=== PATIENT | male | born 1955 | race Caucasian/White ===

== ENCOUNTER 2018-01-05 01:58 | Inpatient (IN) ==
[2018-01-05] MEDS ORDERED: NITROGLYCERIN 0.4 MG/TAB BTL SL PRN (02:03)
--- NOTE | 2018-01-05 02:05 | ERNOTE ---
Chest Pain/Cardiac HPI Time Seen by Provider: 01/05/18 01:58 Source: patient Exam Limitations: no limitations Allergies/Adverse Reactions: Allergies iodine Allergy (Severe, Verified 01/05/18 02:12) Anaphylaxis shellfish derived Allergy (Severe, Verified 01/05/18 02:12) Anaphylaxis Home Medications: HOME MEDICATIONS Docusate Sodium 100 mg PO DAILY 01/05/18 [Last Taken Unknown] Metoprolol Succinate [Toprol Xl] 25 mg PO DAILY 01/05/18 [Last Taken Unknown] Omeprazole 20 mg PO DAILY 01/05/18 [Last Taken Unknown] Piroxicam [Feldene] 20 mg PO DAILY 01/05/18 [Last Taken Unknown] Sertraline HCl [Zoloft] 150 mg PO DAILY 01/05/18 [Last Taken Unknown] Simvastatin 10 mg PO DAILY 01/05/18 [Last Taken Unknown] Tamsulosin HCl [Flomax] 0.4 mg PO DAILY 01/05/18 [Last Taken Unknown] Narrative: Pt got up to go to the bathroom and felt dizzy. He got onto the toilet and began to have chest pain and a headache and called EMS. EMS upon arrival found him A&O X 3 and chest pain free. Timing: intermittent Severity/Quality: moderate, pressure, sharp Chest Pain Radiation: back Activities at Onset: other Nitro Today/Relief: 0.4 mg x 1, provided by ED Aspirin Treatment Today: 81 mg x 4, provided by EMS Associated Symptoms: Present: shortness of breath Prior Chest Pain/Cardiac Workup: Reports: other - SVT ablation 2 years ago. Review of Systems - Review of Systems Constitutional: Absent: recent illness, fever Respiratory: Present: See HPI, shortness of breath Cardiology: Present: See HPI, chest pain, palpitations Endocrine: Present: excessive sweating Medical History (Last Reviewed 01/05/18 @ 04:50 by Nima Love DO) Anemia Arthritis Depression GERD (gastroesophageal reflux disease) Hypertension Surgical History: Surgical History (Last Reviewed 01/05/18 @ 04:50 by Nima Love DO) History of cardiac radiofrequency ablation History of shoulder surgery Social History: Preferred Language Slovenian Smoking Status Never smoker No Social History Section defined Physical Exam - Physical Exam General Appearance: Present: wd/wn, alert, mild distress Head Exam: Present: normal inspection, no evidence of injury Eye Exam: Normal inspection: bilateral, PERRL: bilateral, EOMI: bilateral Ears, Nose, Throat: Present: normal ENT inspection Neck: Present: normal inspection, nontender Respiratory: Present: no respiratory distress, normal breath sounds, lungs clear Cardiovascular/Chest: Present: regular rate, rhythm, no murmur, normal peripher al pulses Gastrointestinal/Abdominal: Present: normal bowel sounds, nontender, nondistended, soft Back Exam: Present: normal inspection, normal range of motion Extremity Exam: Present: normal inspection, normal range of motion, no edema Neurological Exam: Present: alert, oriented, no motor/sensory deficits Skin Exam: Present: normal color, warm/dry Lymphatic Exam: Present: no adenopathy ED Progress - Results and Orders Patient's Lab Results:: I have reviewed the patient's lab results. Results and Orders: Laboratory Tests 01/05/18 01/05/18 01/05/18 02:10 02:10 02:10 WBC 11.3 H Hgb 12.0 L Hct 35.6 L Plt Count 253 Neutrophils % 80.1 H Sodium 132 Potassium 3.7 Chloride 94 L Anion Gap 14.2 H BUN 19 Creatinine 1.83 H Random Glucose 102 Lactic Acid, Venous 2.7 H* Calcium 9.0 Total Bilirubin 0.5 AST 22 ALT 25 Alkaline Phosphatase 89 Troponin I Less than 0.017 Total Protein 7.6 Albumin 3.8 Urine Color Urine Appearance Urine pH Ur Specific [place] Urine Protein Urine Glucose (UA) Urine Ketones Urine Blood Urine Nitrate Urine Bilirubin Urine Urobilinogen Ur Leukocyte Esterase Urine RBC Urine WBC Ur Epithelial Cells Urine Bacteria Urine Culture Comments 01/05/18 01/05/18 03:46 04:05 WBC Hgb Hct Plt Count Neutrophils % Sodium Potassium Chloride Anion Gap BUN Creatinine Random Glucose Lactic Acid, Venous Calcium Total Bilirubin AST ALT Alkaline Phosphatase Troponin I Less than 0.017 Total Protein Albumin Urine Color Yellow Urine Appearance Clear Urine pH 6.0 Ur Specific [place] >=1.030 Urine Protein Negative Urine Glucose (UA) Negative Urine Ketones Negative Urine Blood Negative Urine Nitrate Negative Urine Bilirubin Negative Urine Urobilinogen Normal Ur Leukocyte Esterase Negative Urine RBC 0-5 Urine WBC None seen Ur Epithelial Cells 0-5 Urine Bacteria None seen Urine Culture Comments No culture indicated - Vital Signs Patient's Vital Signs:: I have reviewed the patient's vital signs. - EKG EKG: NSR EKG read: Interp. by me EKG Comments: #1 02:03 #2 02:[address]-T changes. possible right vent conduction delay. - X-Ray X-Ray #1 X-Ray: chest Interpretation: Interp. by me X-ray Comments: No infiltrate, widened mediastinum. - CT/Ultrasound CT/Ultrasound Narrative: CT Chest without: borderline aneurysmal dilatation of the ascending thoracic aorta pleural thickening or fluid along the right lateral chest wall - Progress/Reassessment Progress:: Improved Progress Note-Subjective: 01/05/18 04:[address] Alvarez he agrees with admission to SCU. Blood cultures drawn. Departure Clinical Impression: Near syncope, Acute hypotension Chest pain Qualifiers: Chest pain type: unspecified Qualified Code(s): R07.9 - Chest pain, unspecified - Departure Disposition: Still a patient Condition: Fair Critical Care Time - Critical Care Critical Time Spent:: Yes Total time (mins) Spent:: 240 Critical Care: Managing chest pain, hypotension, critical care medication drip.
[2018-01-05 02:16] LABS: Hematocrit 35.6 % (42.0-52.0); Mean Corpuscular Hgb Conc 33.7 g/dl (32-36); Mean Platelet Volume 8.9 fl (8-11.3); Neutrophil % 80.1 % (42-75.0); Platelet Count 253 K/mm3 (150-450); Red Cell Distribution Width 13.1 % (11.5-14.0); White Blood Count 11.3 K/mm3 (4.0-10.5)
[2018-01-05] MEDS ORDERED: NORMAL SALINE 1,000 ML IV ONE ×2 (02:32→03:21)
[2018-01-05 02:35] LABS: ALT 25 U/L (19-67); AST 22 U/L (0-48); Albumin * 3.8 gm/dl (3.4-5.0); Alkaline Phosphatase * 89 U/L (50-170); Anion Gap 14.2 mmol/L (6.8-13.8); BUN/Creatinine Ratio 10.4 (9.0-21.6); Bilirubin, Total 0.5 mg/dL (0.0-1.1); Blood Urea Nitrogen 19 mg/dL (6-23); Ca. Corrected For Albumin 8.8 mg/dL (8.4-10.2); Carbon Dioxide 27.5 mmol/L (24-32.6); Chloride 94 mmol/L (97-106); Glucose * 102 mg/dL (70-110); Potassium 3.7 mmol/L (3.4-4.6); Sodium 132 mmol/L (132-142); Total Protein 7.6 gm/dL (6.2-8.2)
[2018-01-05 02:36] LABS: Troponin I Less than 0.017 ng/mL (0.00-0.10)
[2018-01-05 04:17] LABS: Urine Bilirubin Negative (NEGATIVE); Urine Blood Negative /ul (NEGATIVE); Urine Ketone Negative (NEGATIVE); Urine Nitrite Negative (NEGATIVE); Urine Protein Negative (NEGATIVE); Urine Specific Gravity >=1.030 SP.GR. (1.005-1.030); Urine Urobilinogen Normal (NORMAL)
[2018-01-05 04:27] LABS: Urine Appearance Clear (CLEAR); Urine Bacteria None Seen; Urine Color Yellow; Urine RBC 0-5 /hpf (0-5); Urine WBC None Seen /hpf (0-5)
[2018-01-05] MEDS: NORMAL SALINE 1,000 ML IV PRN ×5 (04:33→23:35)
[2018-01-05] MEDS ORDERED: VANCOMYCIN HCL 1 GM in DEXTROSE 5 % IN WATER 250 ML IV ONE ×2 (04:51)
--- NOTE | 2018-01-05 23:46 | HP ---
Chief Complaint - Chief Complaint Date of Service: 01/05/18 Time of Service: 08:00 Chief Complaint: Dizzy, near syncopal episode History of Present Illness: Rigoberto is a 62 yo male who presented to the ER after nearly passing out getting out of bed to the bathroom. He reports feeling lightheaded, unable to stand, dizzy, and nearly blacked out. He does not believe he lost consciousness. Denies change in diet, activity, or medications. He reports symptoms started before he actually went to the bathroom. He was not having chest pain at home. He presented to the [facility] Er and was found to be mildly hypotensive, 100 systolic. He was placed on IV fluids. He then reported having chest pain and was given nitro which lowered his blood pressure to 50/30. He was given more fluids which had little effect on improvement. He then was placed on dopamine which began to improve his blood pressure. He takes a beta zenon at home, but again states this dose has not changed he does not believe he has accidentally taken more than usual. Medical History (Last Reviewed 01/05/18 @ 06:51 by Lotus Guardado RN) Anemia Arthritis Depression GERD (gastroesophageal reflux disease) Hypertension Surgical History: Surgical History (Last Updated 01/05/18 @ 06:53 by Lotus Guardado RN) History of cardiac radiofrequency ablation History of shoulder surgery History of umbilical hernia repair Hx of knee surgery Family History: Family History (Last Updated 01/05/18 @ 06:53 by Lotus Guardado RN) Mother COPD (chronic obstructive pulmonary disease) Lung cancer Father Lung cancer Arthritis Sister Lung cancer Social History: Patient Lives/Resources With Spouse Utilized Occupation disablitiy Preferred Language Welsh Do you have any mormon or No cultural preference? Smoking Status Never smoker Have you smoked in the past 12 No months Do you dip or chew tobacco No Alcohol Use none Drug Use none No Social History Section defined Review Of Systems (GEN) - Review of Systems Generalized/Overall Review: Present: Weakness, Fatigue. Absent: Chills, Fever EENTM: Present: No Symptoms Reported Respiratory: Absent: Cough, Shortness of Breath Cardiac: Present: Chest Pain. Absent: Edema, Palpitations Abdominal: Absent: Nausea, Vomiting Genitourinary: Present: No Symptoms Reported Musculoskeletal: Present: No Symptoms Reported Neurological: Present: No Symptoms Reported Skin: Present: No Symptoms Reported Endocrine: Present: No Symptoms Reported Immunizations: IMMUNIZATION HX Immunizations Up to Date Yes History of Influenza Vaccine No Allergies/Adverse Reactions: Allergies Allergy/AdvReac Type Severity Reaction Status Date / Time iodine Allergy Severe Anaphylaxis Verified 01/05/18 07:00 shellfish derived Allergy Severe Anaphylaxis Verified 01/05/18 07:00 Home Medications: HOME MEDICATIONS Aspirin/Acetaminophen/Caffeine [Excedrin Extra Strength] 1 tab PO DAILY PRN 1 03/07/17 [Last Taken Unknown] Docusate Sodium 100 mg PO DAILY 01/05/18 [Last Taken 01/04/18 21:00] Omeprazole 20 mg PO DAILY 01/05/18 [Last Taken 01/04/18 09:00] Piroxicam [Feldene] 20 mg PO DAILY 01/05/18 [Last Taken 01/04/18 09:00] Sertraline HCl [Zoloft] 150 mg PO DAILY 01/05/18 [Last Taken 01/04/18 09:00] Simvastatin 10 mg PO DAILY 01/05/18 [Last Taken 01/04/18 21:00] Tamsulosin HCl [Flomax] 0.4 mg PO DAILY 01/05/18 [Last Taken 01/04/18 21:00] Exam - Exam Vital Signs: Vital Signs - Last Taken Temp 36.7 C 01/05/18 20:32 Pulse 74 01/05/18 20:32 Resp 18 01/05/18 20:32 BP 141/79 01/05/18 20:32 Pulse Ox 97 01/05/18 20:32 Constitutional: Present: Alert, Oriented x3, Cooperative ENT Exam: Present: hearing grossly normal Eye Exam: bilateral eye: normal inspection Respiratory: Present: lungs clear, normal breath sounds Cardiovascular/Chest: Present: regular rate, rhythm, no murmur Abdomen: Present: Normal bowel sounds, soft, nontender, nondistended Extremity: Present: normal inspection Skin Exam: Present: normal color, warm/dry, no cyanosis Appearance: Present: appropriate appearance, appropriate insight Eye contact: Present: cooperative, good eye contact, normal speech Thoughts: Present: normal thought pattern, no apparent hallucination Diagnostic Studies: Abnormal Lab Results 01/05/18 01/05/18 01/05/18 Range/Units 02:10 02:10 02:10 WBC 11.3 H (4.0-10.5) K/mm3 RBC 4.00 L (4.7-6.0) M/mm3 Hgb 12.0 L (13.5-18.0) gm/dL Hct 35.6 L (42.0-52.0) % Immature Gran # (Auto) 0.05 H (0.000-0.0310) K/mm3 Neutrophils % 80.1 H (42-75.0) % Lymphocytes % 12.4 L (20-51) % Neutrophils # 9.0 H (1.3-6.0) K/mm3 Lymphocytes # 1.39 L (1.5-3.5) k/mm3 Chloride 94 L (97-106) mmol/L Anion Gap 14.2 H (6.8-13.8) mmol/L Creatinine 1.83 H (0.4-1.4) mg/dL Est GFR (Non-Af Amer) 40 L D (60-130) mL/min Lactic Acid, Venous 2.7 H* (0.4-2.0) mmol/L Laboratory Results WBC 11.3 K/mm3 (4.0-10.5) H 01/05/18 02:10 RBC 4.00 M/mm3 (4.7-6.0) L 01/05/18 02:10 Hgb 12.0 gm/dL (13.5-18.0) L 01/05/18 02:10 Hct 35.6 % (42.0-52.0) L 01/05/18 02:10 MCV 89.0 fl (78-100) 01/05/18 02:10 MCH 30.0 pg (27-31) 01/05/18 02:10 MCHC 33.7 g/dl (32-36) 01/05/18 02:10 RDW 13.1 % (11.5-14.0) 01/05/18 02:10 Plt Count 253 K/mm3 (150-450) 01/05/18 02:10 MPV 8.9 fl (8-11.3) 01/05/18 02:10 Immature Gran % (Auto) 0.40 % (0.001-0.429) 01/05/18 02:10 Immature Gran # (Auto) 0.05 K/mm3 (0.000-0.0310) H 01/05/18 02:10 Neutrophils % 80.1 % (42-75.0) H 01/05/18 02:10 Lymphocytes % 12.4 % (20-51) L 01/05/18 02:10 Monocytes % 4.5 % (0.0-9) 01/05/18 02:10 Eosinophils % 2.3 % (0.0-3.0) 01/05/18 02:10 Basophils % 0.3 % (0.0-1.0) 01/05/18 02:10 Nucleated RBC % 0.0 k/mm3 (0-1) 01/05/18 02:10 Neutrophils # 9.0 K/mm3 (1.3-6.0) H 01/05/18 02:10 Lymphocytes # 1.39 k/mm3 (1.5-3.5) L 01/05/18 02:10 Monocytes # 0.5 k/mm3 (0.0-1.0) 01/05/18 02:10 Eosinophils # 0.3 k/mm3 (0.0-0.7) 01/05/18 02:10 Absolute Basophils 0.0 k/mm3 (0.0-0.1) 01/05/18 02:10 Sodium 132 mmol/L (132-142) 01/05/18 02:10 Plasma Sodium 132 mmol/L (130-142) 01/05/18 02:10 Potassium 3.7 mmol/L (3.4-4.6) 01/05/18 02:10 Chloride 94 mmol/L (97-106) L 01/05/18 02:10 Carbon Dioxide 27.5 mmol/L (24-32.6) 01/05/18 02:10 Anion Gap 14.2 mmol/L (6.8-13.8) H 01/05/18 02:10 BUN 19 mg/dL (6-23) 01/05/18 02:10 Creatinine 1.83 mg/dL (0.4-1.4) H 01/05/18 02:10 Est GFR (Non-Af Amer) 40 mL/min (60-130) L D 01/05/18 02:10 BUN/Creatinine Ratio 10.4 (9.0-21.6) 01/05/18 02:10 Random Glucose 102 mg/dL (70-110) 01/05/18 02:10 Lactic Acid, Venous 0.5 mmol/L (0.4-2.0) 01/05/18 05:59 Calcium 9.0 mg/dL (7.9-10.9) 01/05/18 02:10 Calcium Adj for Albumin 8.8 mg/dL (8.4-10.2) 01/05/18 02:10 Total Bilirubin 0.5 mg/dL (0.0-1.1) 01/05/18 02:10 AST 22 U/L (0-48) 01/05/18 02:10 ALT 25 U/L (19-67) 01/05/18 02:10 Alkaline Phosphatase 89 U/L (50-170) 01/05/18 02:10 Troponin I Less than 0.017 ng/mL (0.00-0.10) 01/05/18 04:05 Total Protein 7.6 gm/dL (6.2-8.2) 01/05/18 02:10 Albumin 3.8 gm/dl (3.4-5.0) 01/05/18 02:10 Urine Color Yellow 01/05/18 03:46 Urine Appearance Clear (CLEAR) 01/05/18 03:46 Urine pH 6.0 pH (5.0-7.0) 01/05/18 03:46 Ur Specific [place] >=1.030 SP.GR. (1.005-1.030) 01/05/18 03:46 Urine Protein Negative mg/dL (NEGATIVE) 01/05/18 03:46 Urine Glucose (UA) Negative mg/dL (NEGATIVE) 01/05/18 03:46 Urine Ketones Negative mg/dL (NEGATIVE) 01/05/18 03:46 Urine Blood Negative /ul (NEGATIVE) 01/05/18 03:46 Urine Nitrate Negative (NEGATIVE) 01/05/18 03:46 Urine Bilirubin Negative mg/dl (NEGATIVE) 01/05/18 03:46 Urine Urobilinogen Normal EU/dl (NORMAL) 01/05/18 03:46 Ur Leukocyte Esterase Negative /ul (NEGATIVE) 01/05/18 03:46 Urine RBC 0-5 /hpf (0-5) 01/05/18 03:46 Urine WBC None seen /hpf (0-5) 01/05/18 03:46 Ur Epithelial Cells 0-5 /hpf (0-5) 01/05/18 03:46 Urine Bacteria None seen (NONE) 01/05/18 03:46 Urine Culture Comments Culture to follow 01/05/18 03:46 Assessment/Plan - Narrative Narrative: Rigoberto is a 62 yo male with: 1) Near syncopal episode with hypotension - Occurred getting up to the bathroom could indicate vasovagal, but he believes symptoms occurred prior to actually going to the bathroom. His betablocker could be too strong for him and will atleast be held at this time. He is currently on a dopamine drip, this is mostly in part due to nitro given for his chest pain. Will continue IV fluids and wean off dopamine. 2) Chest Pain - No evidence of acute UT. Will monitor telemetry and troponins. - Assessment/Plan (1) Near syncope Problem: Acute (2) Chest pain Problem: Acute Qualifiers: Chest pain type: unspecified Qualified Code(s): R07.9 - Chest pain, unspecified (3) Acute hypotension Problem: Acute
[2018-01-06] MEDS: NORMAL SALINE 1,000 ML IV PRN (07:22)
--- NOTE | 2018-01-06 10:33 | DS ---
(1) Acute hypotension Problem: Acute (2) Chest pain Problem: Acute Qualifiers: Chest pain type: unspecified Qualified Code(s): R07.9 - Chest pain, unspecified Description of Stay: Ashley was admitted for hypotensive episode after getting up to the bathroom and having a near syncopal episode. He presented to the ER and was found to be hypotensive. He was given fluids which improved his blood pressure. He then reported chest pain and was given nitro which caused a drop of his blood pressure. Fluids were unsuccessful in raising his blood pressure and he was started on a dopamine drip. This improved blood pressure and he was admitted to the SCU on the dopamine drip. IV fluids were continued and his home medication of metoprolol was held. Eventually his dopamine drip was able to be titrated off and blood pressures remained stable. After the drip was titrated off he had an episode while sleeping of bradycardia with pauses. His heart rate dropped as low as 30. He remained asymptomatic during this episode. He was witness to have snoring episodes in his sleep but no witnessed apnea spells. He was then transferred to the general medical floor for further monitoring over night and he did well with no further hypotensive or bradycardic spells. He will be discharged to home today. I recommend he stay off his metoprolol at this time until following up with his primary care physician. He will monitor his blood p ressure at home and may restart at half a tablet twice a day if blood pressure becomes elevated. He will follow up with his puppy trainer as well. Procedures Performed: none Results and Findings: Pending Mircobiology Results 01/05/18 03:46 Urine,Catheterized Urine Culture - Preliminary No Growth 01/05/18 02:10 Blood Blood Culture - Preliminary NO GROWTH 24 HOURS 01/05/18 04:51 Blood Blood Culture - Preliminary NO GROWTH 24 HOURS Lab Pending Results 01/05/18 02:10: WBC 11.3 H, RBC 4.00 L, Hgb 12.0 L, Hct 35.6 L, MCV 89.0, MCH 30.0, MCHC 33.7, RDW 13.1, Plt Count 253, MPV 8.9, Immature Gran % (Auto) 0.40, Immature Gran # (Auto) 0.05 H, Neutrophils % 80.1 H, Lymphocytes % 12.4 L, Monocytes % 4.5, Eosinophils % 2.3, Basophils % 0.3, Nucleated RBC % 0.0, Neutrophils # 9.0 H, Lymphocytes # 1.39 L, Monocytes # 0.5, Eosinophils # 0.3, Absolute Basophils 0.0 01/05/18 02:10: Sodium 132, Plasma Sodium 132, Potassium 3.7, Chloride 94 L, Carbon Dioxide 27.5, Anion Gap 14.2 H, BUN 19, Creatinine 1.83 H, Est GFR (Non- Af Amer) 40 L D, BUN/Creatinine Ratio 10.4, Random Glucose 102, Calcium 9.0, Calcium Adj for Albumin 8.8, Total Bilirubin 0.5, AST 22, ALT 25, Alkaline Nicole sphatase 89, Troponin I Less than 0.017, Total Protein 7.6, Albumin 3.8 01/05/18 02:10: Lactic Acid, Venous 2.7 H* 01/05/18 03:46: Urine Color Yellow, Urine Appearance Clear, Urine pH 6.0, Ur Specific [place] >=1.030, Urine Protein Negative, Urine Glucose (UA) Negative, Urine Ketones Negative, Urine Blood Negative, Urine Nitrate Negative, Urine Armando irubin Negative, Urine Urobilinogen Normal, Ur Leukocyte Esterase Negative, Urine RBC 0-5, Urine WBC None seen, Ur Epithelial Cells 0-5, Urine Bacteria None seen, Urine Culture Comments Culture to follow 01/05/18 04:05: Troponin I Less than 0.017 01/05/18 05:59: Lactic Acid, Venous 0.5 Discharge Location: Home Disposition: Home self-care Condition: Good Discharge Activity: Activity as tolerated Discharge Diet: Low salt Referrals: [facility] [Non Staff Physicians] - (Patient elects to call for follow up appointment with his [facility] and [facility] trainer.) Problem Oriented Discharge Instructions to Patient/Family: Hypotension, [id number] Complete Home Medications List: Complete Home Medication List: Aspirin/Acetaminophen/Caffeine [Excedrin Extra Strength] 1 tab PO DAILY PRN 01/05/18 Docusate Sodium 100 mg PO DAILY 01/05/18 Omeprazole 20 mg PO DAILY 01/05/18 Piroxicam [Feldene] 20 mg PO DAILY 01/05/18 Sertraline HCl [Zoloft] 150 mg PO DAILY 01/05/18 Simvastatin 10 mg PO DAILY 01/05/18 Tamsulosin HCl [Flomax] 0.4 mg PO DAILY 01/05/18
[2018-01-06 11:12] VITALS: BP 173/92
--- NOTE | 2018-01-07 07:48 | ECHO ---
This report is available in the EMR
== END 2018-01-06 11:41 | disposition home or self-care (01) | DRG 316 ==
LOC: ER 01:58 → SCU 05:31 → MS 15:07
PROVIDERS: ADMIT Family Medicine; ATTEND Family Medicine
DX: I10 Essential (primary) hypertension; M19.90 Unspecified osteoarthritis, unspecified site; D64.9 Anemia, unspecified; K21.9 Gastro-esophageal reflux disease without esophagitis; Z79.82 Long term (current) use of aspirin; Z91.013 Allergy to seafood; Z82.61 Family history of arthritis; Z23 Encounter for immunization; I95.9 Hypotension, unspecified; R07.9 Chest pain, unspecified; F32.9 Major depressive disorder, single episode, unspecified; Z88.8 Allergy status to other drugs, medicaments and biological substances
CPT/HCPCS: 36415; 71010; 71045; 71250; 80053; 81001; 83605; 84484; 85025; 87040; 87086; 90686; 93005; 93306; 96361; 96365; 96366; 96367; 99291; 99292